=== PATIENT | female | born 1985 | race Caucasian/White ===

== ENCOUNTER 2016-09-13 07:03 | Emergency (ER) | payer BC ==
[~2016-09-13] VITALS: Ht 160 cm; Wt 75.0 kg
[~2016-09-13 07:03] MED LIST: CEPHALEXIN500 M2; CYTOMEL5 MCG PO; HYDROCODON-ACE1 EAC7 PO; LIOTHYRONINE SO5 MCG PO; MACROBID100 MG PO; MOTRIN800 MG PO; PRISTIQ100 MG PO; PYRIDIUM200 MG PO; TIROSINT50 MCG PO
[2016-09-13 08:27] LABS: ANION GAP 5 MEQ/L (2-14); CHLORIDE 105 MEQ/L (99-109); GFR ESTIMATE (CALCULATED) > 59 mL/min/; GLUCOSE 113 mg/dL (70-99); SAMPLE HEMOLYSIS CHECK 0; SAMPLE ICTERIC CHECK 0; SAMPLE LIPEMIA CHECK 0; SODIUM 138 MEQ/L (136-147); UREA NITROGEN (BUN) 10 mg/dL (9-23)
[2016-09-13 08:53] LABS: HEMATOCRIT 34.6 % (36.0-46.0); MCH 28.2 PG (29.0-34.0); MCHC 33.2 G/DL (30.0-36.0); MCV 84.8 FL (83-99); MEAN PLAT.VOLUME 11.8 uM^3 (9.5-12.4); PLATELET COUNT 95 K/uL (156-360); RBC DIS.WIDTH-CV 12.3 % (11.8-14.6); RED BLOOD COUNT 4.08 M/uL (3.80-5.20)
[2016-09-13 09:15] LABS: WHITE BLOOD COUNT 1.8 K/uL (4.1-10.2)
[2016-09-13] MEDS ORDERED: PEPCID20 MG PO (09:16)
[2016-09-13] MEDS ORDERED: BENADRYL25 MG PO (09:16)
[2016-09-13 09:26] VITALS: BP 140/88
[2016-09-13 09:57] LABS: EOSINOPHIL (%) 2.2 % (0-5); HEMATOLOGY COMMENT 1 SMEAR COMPATIBLE; INSTRUMENT ABS NEUTROPHIL CT 0.7 K/uL; LYMPHOCYTE COUNT 0.8 K/uL (1.0-2.8); MONOCYTE (%) 16.4 % (3-12); MONOCYTE COUNT 0.3 K/uL (0-0.8); NEUTROPHIL (%) 39.3 % (45-76); NEUTROPHIL COUNT 0.7 K/uL (1.8-6.4); PLAT.SUFFICIENCY DECREASED
== END 2016-09-13 09:26 | disposition home or self-care (01) ==
LOC: EME 07:03
PROVIDERS: Nurse Practitioner Family
DX: L27.0 Generalized skin eruption due to drugs and medicaments taken internally (principal); M43.6 Torticollis; T37.0X5A Adverse effect of sulfonamides, initial encounter
CPT/HCPCS: 80048; 85025; 99281; 99284; J1100